=== PATIENT | female | born 1970 | race Asian ===

== ENCOUNTER 2016-12-14 | Emergency (ER) | payer OTHER | END 2016-12-14 16:50 | disposition left against medical advice (07) | DX: Z53.21 Procedure and treatment not carried out due to patient leaving prior to being seen by health care provider (principal) ==

== ENCOUNTER 2017-04-17 10:36 | Outpatient (CLI) | payer OTHER ==
--- NOTE | 2017-04-17 14:11 | XRAY Report ---
TWO VIEW CHEST: 04/17/2017 CLINICAL INDICATION: Cough, shortness of breath. COMPARISON: 02/06/2016. FINDINGS: Frontal and lateral views of the chest demonstrate a patchy infiltrate in the right upper lobe. The cardiac silhouette is not enlarged. No effusion or pneumothorax is present. IMPRESSION: PATCHY RIGHT UPPER LOBE INFILTRATE. JOB #: [id number] EXT JOB #:[id number]
== END 2017-04-17 10:37 | disposition home or self-care (01) ==
LOC: DI.N 10:36
PROVIDERS: ATTEND Internal Medicine
DX: R91.8 Other nonspecific abnormal finding of lung field (principal)
CPT/HCPCS: 71020

== ENCOUNTER 2020-11-15 10:30 | Outpatient (CLI) | payer MEDICAID | END 2020-11-15 23:59 | disposition home or self-care (01) | LOC: COV 10:30 | PROVIDERS: ATTEND Family Medicine | DX: R06.02 Shortness of breath (principal); M79.10 Myalgia, unspecified site; R07.0 Pain in throat; Z20.828 Contact with and (suspected) exposure to other viral communicable diseases ==